=== PATIENT | female | born 1950 | race Caucasian/White ===

== ENCOUNTER 2016-09-10 19:38 | Emergency (ER) | payer MEDICARE, OTHER ==
[2016-09-10 20:04] VITALS: BP 158/87
--- NOTE | 2016-09-10 20:23 | EDM.PDOC ---
[id number] Complaint: FELL HURT RI HAND Time Seen by Provider: 09/10/16 20:10 Source of Information: Reports: Patient History Limitations: Reports: No Limitations - History of Present Illness INITIAL COMMENTS - FREE TEXT/NARRATIVE: 65-year-old female [place] striking her hand on the ground. This happened within the last couple of hours. She has swelling and tenderness at the base of the second metacarpal near the wrist. Also some tenderness at the distal radius. No significant deformity. Onset: Today Location: Reports: Upper Extremity, Right Severity: Mild Associated Symptoms: Reports: No Other Symptoms - Related Data Allergies Allergy/AdvReac Type Severity Reaction Status Date / Time No Known Allergies Allergy Verified 09/10/16 20:04 Home Meds: Home Meds Aspirin [Lo-Dose Aspirin EC] 81 mg PO BEDTIME 09/10/16 [History] Atenolol 25 mg PO DAILY 09/10/16 [History] Furosemide 60 mg PO DAILY 09/10/16 [History] Past Medical History HEENT History: Reports: Impaired Vision Cardiovascular History: Reports: Heart Failure, Hypertension Respiratory History: Reports: Pneumonia, Recurrent HOG KILLER History: Reports: Musculoskeletal History: Reports: Fracture - Past Surgical History HEENT Surgical History: Reports: Adenoidectomy, Tonsillectomy Female Surgical History: Reports: Tubal Ligation Musculoskeletal Surgical History: Reports: Arthroscopic Knee Social & Family History - Tobacco Use Smoking Status *Q: Former Smoker Used Tobacco, but Quit: Yes Month Tobacco Last Used: 60 - Caffeine Use Caffeine Use: Reports: Coffee - Recreational Drug Use Recreational Drug Use: No Review of Systems - Review of Systems Review Of Systems: See Below Constitutional: Denies: Fever Respiratory: Denies: Shortness of Breath GI/Abdominal: Denies: Nausea, Vomiting Musculoskeletal: Reports: Hand Pain Skin: Reports: Bruising Neurological: Reports: No Symptoms. Denies: Paresthesia Psychiatric: Reports: No Symptoms ED EXAM, GENERAL - Physical Exam Exam: See Below Exam Limited By: No Limitations General Appearance: Alert, No Apparent Distress Respiratory/Chest: No Respiratory Distress Extremities: Other (Remainder of exam is limited to the right arm. She has swelling and tenderness to palpation over the dorsal aspect of the hand at the base of the second metacarpal near the wrist. There is also a small amount of pain with palpation of the snuffbox area at the base of the thumb.) Course - Vital Signs Last Recorded V/S: Last Vital Signs Temp 97.7 F 09/10/16 20:03 Pulse 70 09/10/16 20:03 Resp 16 09/10/16 20:03 BP 158/87 H 09/10/16 20:03 Pulse Ox 97 09/10/16 20:03 - Orders/Labs/Meds Orders: Active Orders 24 hr Category Date Time Status Hand Comp Min 3V Rt [CR] Stat Exams 09/10/16 20:18 Taken DME for Discharge [COMM] Stat Oth 09/10/16 20:48 Ordered - Re-Assessments/Exams Free Text/Narrative Re-Assessment/Exam: 09/10/16 20:23 An x-ray of the right hand was obtained. 09/10/16 20:45 X-ray reveals a minimally displaced comminuted fracture of the distal radius. A 12 inch Ortho-Glass short arm splint was applied and the patient will recheck with Leroy Reynolds of orthopedics on at 3 PM. She is to keep her hand in the splint until recheck. She was given a sling for support. She declined pain medications. Departure - Departure Time of Disposition: 21:10 Disposition: Home, Self-Care 01 Condition: Good Clinical Impression: Fracture of radius Qualifiers: Encounter type: initial encounter Radius location: distal physis (incl. [place]- [place]) Fracture alignment: nondisplaced Laterality: right Qualified Code(s): S59.201A - Unspecified physeal fracture of lower end of radius, right arm, initial encounter for closed fracture - Discharge Information Instructions: Radial Fracture Referrals: PCP,None [Primary Care Provider] - Forms: ED Department Discharge Care Plan Goals: Continue wearing splint and use sling until you are rechecked with orthopedics on by Dr. Reynolds at 3 PM. Tylenol or ibuprofen should help with pain. Return any time if concerns such as loss of sensation to the hand or uncontrolled pain. - My Orders Last 24 Hours: My Active Orders 09/10/16 20:18 Hand Comp Min 3V Rt [CR] Stat 09/10/16 20:48 DME for Discharge [COMM] Stat - Assessment/Plan Last 24 Hours: My Active Orders 09/10/16 20:18 Hand Comp Min 3V Rt [CR] Stat 09/10/16 20:48 DME for Discharge [COMM] Stat
--- NOTE | 2016-09-11 10:55 | CR ---
Right hand Findings: There is a mildly impacted fracture of the distal radial metaphysis. The carpal bones and ulna are intact. There are degenerative findings at the first CMC joint as well as IP joint of the t humb. Impression: 1. Fracture distal radial metaphysis without significant displacement.
== END 2016-09-10 21:02 | disposition home or self-care (01) ==
LOC: JP.ED 19:38
DX: S59.201A Unspecified physeal fracture of lower end of radius, right arm, initial encounter for closed fracture (principal); I11.0 Hypertensive heart disease with heart failure; I50.9 Heart failure, unspecified; H54.7 Unspecified visual loss; Z87.01 Personal history of pneumonia (recurrent); Z98.890 Other specified postprocedural states; Z87.891 Personal history of nicotine dependence; Z79.899 Other long term (current) drug therapy; Z79.82 Long term (current) use of aspirin; W18.30XA Fall on same level, unspecified, initial encounter
CPT/HCPCS: 29125; 73130-26-RT; 73130-RT; 99283-25; 99284-25